=== PATIENT | female | born 1990 | race Two or more races ===

== ENCOUNTER 2025-08-01 07:24 | Emergency (ER) | payer OTHER ==
[~2025-08-01] VITALS: Ht 160 cm; Wt 68.0 kg
[2025-08-01 07:30] VITALS: BP 128/81; O2SAT 100
[2025-08-01] MEDS ORDERED: RINGERS SOLUTION,LACTATED 1,000 ML IV ONE (08:00)
[2025-08-01 11:01] LABS: BASO % 0.9 % (0.1-1.2); EOS # 0.02 (0.04-0.54); EOS % 0.5 % (0.7-7.0); LYMPH # 2.18 (1.18-3.74); LYMPH % 50.2 % (19.3-53.1); MEAN PLATELET VOLUME 10.10 fl (9.4-12.4); MONO # 0.25 (0.24-0.82); MONO % 5.8 % (4.7-12.5); NEUT # 1.84 (1.56-6.13); NEUT % 42.4 % (34.0-71.1); RED CELL DISTRIBUTION WIDTH 21.2 % (11.6-14.4)
[2025-08-01 11:50] LABS: ALT/SGPT 16 U/L (12-78); AST/SGOT 17 U/L (15-37); BILIRUBIN TOTAL 0.53 mg/dL (0.3-1.2); BUN CREA RATIO 21 (7.0-25.0); CREATININE SERUM 0.68 mg/dL (0.55-1.02); GFR 97.90; GLOBULINA 3.8 G/DL (2.4-3.5); GLUCOSE FASTING 84 mg/dL (65-100); OSMOLALITY SERUM 281 MOSM/KG (275-295)
[2025-08-01 11:53] LABS: HCG QUANTITATIVE < 1 mUI/mL (1-3)
[2025-08-01] MEDS ORDERED: MEDROXYPROGESTE10 MG PO (12:09)
== END 2025-08-01 12:21 | disposition home or self-care (01) ==
LOC: ER 07:24
PROVIDERS: General Practice
DX: N93.8 Other specified abnormal uterine and vaginal bleeding (principal)